=== PATIENT | male | born 1985 ===

== ENCOUNTER 2016-10-30 19:29 | Emergency (ER) | payer OTHER ==
[2016-10-30 19:49] VITALS: BP 124/74; PULSE 74; RESP 18; TEMP 98.4; O2SAT 100
--- NOTE | 2016-10-30 20:24 | ED PDOC ---
HPI: Male Pain Chief Complaint (Provider): rash History Per: Patient (31 y/o male with h/o genital herpes here for repeat episode. Has been treated with valtrex in past.) <Lance Cotter - Last Filed: 10/30/16 20:22> <Pavithra Clark - Last Filed: 11/01/16 13:48> Time Seen by Provider: 10/30/16 20:22 Chief Complaint (Nursing): Male Genitourinary Past Medical History Reviewed: Historical Data, Nursing Documentation, Vital Signs Vital Signs: Last Vital Signs Temp 98.4 F 10/30/16 19:46 Pulse 74 10/30/16 19:46 Resp 18 10/30/16 19:46 BP 124/74 10/30/16 19:46 Pulse Ox 100 10/30/16 19:46 - Family History Family History: States: Unknown Family Hx - Immunization History Hx Tetanus Toxoid Vaccination: No Hx Influenza Vaccination: No Hx Pneumococcal Vaccination: No <Lance Cotter - Last Filed: 10/30/16 20:22> Vital Signs: Last Vital Signs Temp 98.4 F 10/30/16 19:46 Pulse 74 10/30/16 19:46 Resp 18 10/30/16 19:46 BP 124/74 10/30/16 19:46 Pulse Ox 100 10/30/16 20:34 <Pavithra Clark - Last Filed: 11/01/16 13:48> - Home Medications Home Medications: Ambulatory Orders Medication Instructions Recorded Acyclovir [Zovirax] 200 mg PO 5XD #35 cap 09/22/16 Butenafine HCl [Lotrimin Ultra] 0.5 gm TP BID #30 cream..g. 10/30/16 valACYclovir [Valtrex] 500 mg PO BID #6 tab 10/30/16 - Allergies Allergies/Adverse Reactions: Allergies Allergy/AdvReac Type Severity Reaction Status Date / Time No Known Allergies Allergy Verified 09/22/16 21:53 Review of Systems ROS Statement: Except As Marked, All Systems Reviewed And Found Negative <Lance Cotter - Last Filed: 10/30/16 20:22> Physical Exam - Reviewed Nursing Documentation Reviewed: Yes Vital Signs Reviewed: Yes - Physical Exam Appears: Positive for: Well, Non-toxic, No Acute Distress Head Exam: Positive for: ATRAUMATIC, NORMAL INSPECTION, NORMOCEPHALIC Skin: Positive for: Normal Color, Warm, DRY Eye Exam: Positive for: EOMI, Normal appearance, PERRL ENT: Positive for: Normal ENT Inspection Neck: Positive for: Normal, Painless ROM Cardiovascular/Chest: Positive for: Regular Rate, Rhythm Respiratory: Positive for: CNT, Normal Breath Sounds Gastrointestinal/Abdominal: Positive for: Normal Exam, Bowel Sounds, Soft Back: Positive for: Normal Inspection Extremity: Positive for: Normal ROM Neurologic/Psych: Positive for: Alert, Oriented <Lance Cotter - Last Filed: 10/30/16 20:22> - ECG O2 Sat by Pulse Oximetry: 100 <Lance Cotter - Last Filed: 10/30/16 20:22> Medical Decision Making Medical Decision Making: Lab report indicates positive RPR. Patient was informed of positive test result via certified barber instructor, Eloisa eLe RN. Patient was instructed to return to ED for treatment. Patient states he can't come back today as he is at work, but he will return to ED tomorrow for treatment. Patient verbalized understanding of the importance of returning to ED for treatment. All questions answered for patient. <Pavithra Clark - Last Filed: 11/01/16 13:48> Disposition - Patient ED Disposition Is Patient to be Admitted: No - Disposition Disposition: Routine/Home Disposition Time: 20:23 <Lance Cotter - Last Filed: 10/30/16 20:22> <Pavithra Clark - Last Filed: 11/01/16 13:48> - Clinical Impression Clinical Impression: Genital herpes - Disposition Referrals: [facility] [place] [Outside] Krishna Washington Jr., MD [Staff Provider] - Condition: FAIR Prescriptions: Butenafine HCl [Lotrimin Ultra] 0.5 gm TP BID #30 cream..g. valACYclovir [Valtrex] 500 mg PO BID #6 tab Instructions: Genital Herpes Simplex (ED) Print Language: ALBANIAN
[2016-10-30] MEDS ORDERED: cefTRIAXone (Rocephin) 250 mg Inj IM STA (20:35)
[2016-10-30] MEDS ORDERED: cefTRIAXone (Rocephin) 250 mg Inj ONE (21:25)
[2016-10-31 18:57] LABS: RAPID PLASMA REAGIN REACTIVE (NONREACTIVE)
== END 2016-10-30 22:03 | disposition home or self-care (01) ==
LOC: H.ER 19:29
DX: A60.00 Herpesviral infection of urogenital system, unspecified (principal)

== ENCOUNTER 2016-11-02 15:00 | Emergency (ER) | payer OTHER ==
[2016-11-02 15:05] VITALS: BP 129/77; PULSE 79; RESP 20; TEMP 97; O2SAT 99
--- NOTE | 2016-11-02 15:30 | ED PDOC ---
HPI: General Adult Time Seen by Provider: 11/02/16 15:15 Chief Complaint (Nursing): Male Genitourinary Chief Complaint (Provider): Here for antibiotics History Per: Patient History/Exam Limitations: no limitations Onset/Duration Of Symptoms: Days (today) Additional Complaint(s): Pt. was sexually active few months ago. Recently noticed lesions on his penis and came to the ED several times. Dx with herpes. Sent home on valtrex on 10/30. Pt. results came back positive for RPR and told to come back to get injection of antibiotics. Pt. denies any nausea, vomit, headaches, weakness, numbness, tingles, dizziness, chest pain, dyspnea, fever. No back pain. No itching or new rashes. Has 3 lesions on his penis. Mild painful. Urinating with no issues. Past Medical History Reviewed: Nursing Documentation, Vital Signs Vital Signs: Last Vital Signs Temp 97.0 F L 11/02/16 15:02 Pulse 79 11/02/16 15:02 Resp 20 11/02/16 15:02 BP 129/77 11/02/16 15:02 Pulse Ox 99 11/02/16 15:30 - Medical History Other PMH: herpes - Surgical History Surgical History: No Surg Hx - Family History Family History: States: Unknown Family Hx - Social History Current smoker - smoking cessation education provided: No Alcohol: None Drugs: Denies - Immunization History Hx Tetanus Toxoid Vaccination: No Hx Influenza Vaccination: No Hx Pneumococcal Vaccination: No - Home Medications Home Medications: Ambulatory Orders Medication Instructions Recorded Doxycycline Monohydrate 100 mg PO BID 14 Days 11/02/16 - Allergies Allergies/Adverse Reactions: Allergies Allergy/AdvReac Type Severity Reaction Status Date / Time No Known Allergies Allergy Verified 11/02/16 15:01 Review of Systems Constitutional: Negative for: Weakness ENT: Negative for: Ear Discharge, Mouth Swelling, Throat Pain Cardiovascular: Negative for: Chest Pain Respiratory: Negative for: Cough, Shortness of Breath Gastrointestinal: Negative for: Nausea, Vomiting, Abdominal Pain Genitourinary Male: Positive for: Rash, Penile Pain. Negative for: Dysuria, Penile Discharge, Scrotal Pain Musculoskeletal: Negative for: Neck Pain, Shoulder Pain Skin: Positive for: Rash Neurological: Negative for: Weakness, Numbness Physical Exam - Reviewed Nursing Documentation Reviewed: Yes Vital Signs Reviewed: Yes - Physical Exam Appears: Positive for: Well, Non-toxic, No Acute Distress Head Exam: Positive for: ATRAUMATIC, NORMAL INSPECTION, NORMOCEPHALIC Eye Exam: Positive for: EOMI, Normal appearance, PERRL ENT: Positive for: Normal ENT Inspection Neck: Positive for: Normal, Painless ROM Cardiovascular/Chest: Positive for: Regular Rate, Rhythm. Negative for: Edema Respiratory: Positive for: CNT, Normal Breath Sounds Gastrointestinal/Abdominal: Positive for: Normal Exam, Bowel Sounds, Soft. Negative for: Tenderness Male Genital Exam: Positive for: other (penis left side toward tip with erythematous lesion mild tender no dc. ). Negative for: lesions, scrotum tenderness (R), scrotum tenderness (L) Back: Positive for: Normal Inspection. Negative for: L CVA Tenderness, R CVA Tenderness Extremity: Positive for: Normal ROM. Negative for: Tenderness, Pedal Edema Neurologic/Psych: Positive for: Alert, fish cleaner II-XII, Oriented. Negative for: Motor/Sensory Deficits - ECG O2 Sat by Pulse Oximetry: 99 - Progress ED Course And Treament: 1536: Stable. AAOx3. No bicillin LA which is standard penicillin for syphilis. Will give doxy. Fu with clinic in 3 days. Disposition - Clinical Impression Clinical Impression: Sexually transmitted disease, Syphilis - Patient ED Disposition Is Patient to be Admitted: No Counseled Patient/Family Regarding: Diagnosis, Need For Followup, Rx Given - Disposition Referrals: [facility] [Outside] - 11/03/16 Disposition: Routine/Home Disposition Time: 15:38 Condition: STABLE Additional Instructions: Take your antibiotics and herpes medication as prescribed. Return if not better in 3 days. Prescriptions: Doxycycline Monohydrate 100 mg PO BID 14 Days Instructions: Syphilis (ED) Print Language: OCCIT[place]
== END 2016-11-02 16:03 | disposition home or self-care (01) ==
LOC: H.ER 15:00
DX: A53.9 Syphilis, unspecified (principal)